=== PATIENT | female | born 1975 | race Hispanic/Latino ===

== ENCOUNTER 2025-07-25 13:07 | Emergency (ER) | payer OTHER ==
[~2025-07-25] VITALS: Ht 157.5 cm; Wt 4.5 kg
--- NOTE | 2025-07-25 13:20 | ERN ---
ED Note History of Present Illness Stated Complaint: RT ARMPIT ABSCESS Chief Complaint: Abscess Time Seen by MD: 13:12 Dictation: PATIENT IS A 49-YEAR-OLD FEMALE HERE WITH A RIGHT AXILLA ABSCESS [place]EN AREA SHE HAS HAD FOR 4-5 DAYS. NO FEVER NO CHILLS NO NAUSEA VOMITING. SHE STATES SHE HAD ONE THERE EARLIER LAST WEEK THAT RUPTURED HOWEVER THIS ONE HAS BEEN PERSISTENT Allergies: Coded Allergies: No Known Drug Allergies (Unverified Allergy, Unknown, 07/25/25) Past Medical History History: Not Applicable RN Note Reviewed/Agreed w/PFSH: Yes Review of System Dictation CONSTITUTIONAL: NEGATIVE EXCEPT FOR HPI HEAD/FACE: NEGATIVE EXCEPT FOR HPI EENT: NEGATIVE EXCEPT FOR HPI RESPIRATORY: NEGATIVE EXCEPT FOR HPI GASTROINTESTINAL/ABDOMINAL: NEGATIVE EXCEPT FOR HPI GENITOURINARY: NEGATIVE EXCEPT FOR HPI MUSCULOSKELETAL: NEGATIVE EXCEPT FOR HPI INTEGUMENTARY: NEGATIVE EXCEPT FOR HPI RIGHT AXILLA ABSCESS NEUROLOGICAL/PSYCH: NEGATIVE EXCEPT FOR HPI HEMATOLOGIC/LYMPHATIC: NEGATIVE EXCEPT FOR HPI ALL SYSTEMS NEGATIVE, EXCEPT NOTED ABOVE. 13 POINT REVIEW OF SYSTEMS ASSESSED AND ALL NEGATIVE EXCEPT FOR ABOVE. Initial Vital Sign VS Vital Signs Date Time Temp Pulse Resp B/P (MAP) Pulse Ox O2 Delivery O2 Flow Rate FiO2 07/25/25 13:14 98.8 114 18 181/99 99 Room Air 0 Physical Exam Dictation VITAL SIGNS REVIEWED GENERAL APPEARANCE: ALERT, ORIENTED X 3, MODERATE ACUTE DISTRESS, WELL DEVELOPED, NOURISHED. HEAD AND FACE: NON-TRAUMATIC. EYES: PERRL, PINK CONJUNCTIVAS, EYELID NO TRAUMA, ANTERIOR CHAMBER WITH ARCUS SENILIS. EARS: PINNAS INTACT AND NO SIGNS OF TRAUMA OR ERYTHEMA EAR CANALS CLEAR AND NO DISCHARGE TM NO ERYTHEMA NOSE: NO DISCHARGE, NO BLEEDING. OROPHARYNX: MOUTH NORMAL, TONGUE PINK, PHARYNX CLEAR,NO ERYTHEMA, TONSILS NO EXUDATES, NO ABSCESSES NOTED, MUCOUS MEMBRANE MOIST NECK: SUPPLE, NON-TENDER, NO THYROMEGALY, NO MASSES, NO JVD, NO BRUITS BREAST:DEFERRED CHEST:NO TENDERNESS, NO CREPITUS, NO PARADOXICAL MOVEMENT, NO RETRACTIONS LUNGS:CLEAR, WELL-VENTILATED, SYMMETRIC, NO RALES, NO WHEEZING, NO RHONCHI, NO STRIDOR, GOOD BREATH SOUNDS BILATERALLY HEART: REGULAR RATE, REGULAR RHYTHM, NO MURMUR, NO GALLOPS VASCULAR: NO PERIPHERAL EDEMA, ABDOMEN: SOFT, POSITIVE BOWEL SOUNDS, NONDISTENDED, NO GUARDING, NONTENDER, NO REBOUND, NO MASSES NO HEPATOMEGALY, NO SPLENOMEGALY, NO EDOUARD'S SIGN, NO HERNIAS. RECTAL: DEFERRED GENITAL: DEFERRED NEUROLOGICAL: NORMAL SPEECH, MOTOR FUNCTION INTACT, SENSORY FUNCTION INTACT MUSCULOSKELETAL: NECK NONTENDER, FULL RANGE OF MOTION, BACK NONTENDER, FULL RANGE OF MOTION, EXTREMITIES: 2 X 2 CM ERYTHEMATOUS LESION TO RIGHT AXILLA FLUCTUANT VERY TENDER TO TOUCH. SKIN: COLOR PINK, DRY, NO TURGOR, NO RASH, NO LACERATIONS, NO ABRASIONS, NO CONTUSIONS. LYMPHATIC: DEFERRED Results (Laboratory/Radiology) Labs Reviewed?: Yes ED Course ED Course Orders Procedure Category Date Status Time Aerobic Culture PAUL 07/25/25 Logged 13:18 Cephalexin 500 Mg PHA 07/25/25 In Process Capsule (Keflex 500 Mg 13:30 Acetaminophen 500mg PHA 07/25/25 Complete Tab (Tylenol 500mg T 13:18 Lidocaine Hcl 1% 20ml PHA 07/25/25 In Process Vial (Lidocaine Hc 13:30 Current Medications Medications (Trade) Dose Ordered Sig/Pawan Route PRN Reason Start Time Stop Time Status Last Admin Dose Admin Acetaminophen (TYLenol 500MG TAB) 1,000 mg ONCE STAT PO 07/25/25 13:18 07/25/25 13:25 DC Cephalexin (Keflex 500 MG CAPS) 1,000 mg ONCE ONCE PO 07/25/25 13:30 07/25/25 13:31 Lidocaine HCl (Lidocaine HCl 1% 20ml Vial) 10 ml ONCE ONCE INJ 07/25/25 13:30 07/25/25 13:31 Vital Signs Date Time Temp Pulse Resp B/P (MAP) Pulse Ox O2 Delivery O2 Flow Rate FiO2 07/25/25 13:14 98.8 114 18 181/99 99 Room Air 0 1330/PATIENT AND HER WERE STRONGLY ADVISED TO CONTINUE ANTIBIOTICS UNTIL GONE. WE WILL GIVE PATIENT 1 G KEFLEX NOW P.O. SHE WAS DISCHARGED TO FOLLOW UP WITH YOUR PRIMARY CARE DOCTOR, TOMORROW FOR FOLLOW UP AND MANAGEMENT. WOUND CARE INSTRUCTIONS GIVEN Medical Decision Making MDM MEDICAL DECISION-MAKING BASED ON EMPIRIC TREATMENT FOR RIGHT AXILLA ABSCESS I AND D WAS PERFORMED AND CULTURE SENT TO LAB KEFLEX 1 G BY MOUTH AND ANALGESIA WAS GIVEN P.O. NO ACTIVE BLEEDING AT THIS TIME. PATIENT REFERRED TO HER PRIMARY CARE DOCTOR TOMORROW Procedure Procedure Dictation: 1325/PROCEDURE EXPLAINED TO PATIENT SHE AGREED TO PROCEED RIGHT AXILLA WAS PREPPED STERILELY WITH BETADINE SWABS 3 ML 1% LIDOCAINE PLAIN FOR LOCAL ANESTHETIC 11. BLADE WAS USED TO MAKE A 2.5 CM INCISION A APPROXIMATELY 5 ML PURULENT DRAINAGE RETURNED AND LOCULATIONS WERE EXPLORED CULTURES WAS SENT TO LAB NO PACKING PATIENT TOLERATED WELL DX & DISP Disposition: Discharge Departure Impression: Primary Impression: Abscess of right axilla Condition: Stable Scripts Ibuprofen (Ibuprofen 800 mg Tab) 800 Mg Tab 800 MG PO Q8H PRN for fever or pain, #30 TAB 0 Refills Prov: NITHIN LORD 07/25/25 Cephalexin (Cephalexin) 500 Mg Tablet 1 TAB PO TID for 10 Days, #30 TAB 0 Refills Prov: NITHIN LORD 07/25/25 Additional Instructions: FOLLOW-UP WITH PRIMARY CARE PROVIDER IN 1 TO 2 DAYS. TAKE MEDICATIONS DIRECTED HERE IN THE EMERGENCY ROOM. OKAY TO CONTINUE HOME MEDICATIONS UNLESS OTHERWISE DISCUSSED DURING YOUR VISIT IN THE EMERGENCY ROOM TODAY. RETURN TO YOUR NEAREST EMERGENCY ROOM IF SYMPTOMS WORSEN OR IF THERE IS NO IMPROVEMENT. CALL 911 IF YOU NEED IMMEDIATE ASSISTANCE. TAKE TYLENOL OR MOTRIN [id number] NEEDED AND IF NO CONTRAINDICATIONS ARE PRESENT. INCREASE ORAL HYDRATION. A WOUND CULTURE OR URINE CULTURE WAS ORDERED HERE IN THE EMERGENCY ROOM DEPARTMENT PLEASE FOLLOW-UP WITH PRIMARY CARE PROVIDER AND ADVISE THEM TO GET REPEAT PORTS FROM OUR FACILITY. IF YOU HAD ANY GENOVEVA WRAP/SPLINTS THAT WERE APPLIED HERE, PLEASE DO NOT REMOVE THEM UNTIL YOU SEE YOUR PRIMARY CARE OR SPECIALTY. OKAY TO WASH WOUND WITH SOAP AND WATER AND RINSE THOROUGHLY. APPLY DRESSING AFTER BATH TAKE ANTIBIOTICS DIRECTED UNTIL GONE. SEE YOUR PRIMARY CARE DOCTOR, TOMORROW FOR MANAGEMENT. Referrals: SELF,REFERRAL (PCP) Time of Disposition: 13:30 I have reviewed the case, and I agree with, Diagnosis and Plan NITHIN LORD Jul 25, 2025 13:20
[2025-07-25] MEDS ORDERED: IBUP-2077 PO (13:31)
[2025-07-25] MEDS ORDERED: CEPH500T PO (13:31)
[2025-07-25] MEDS: LIDOCAINE HCL 1% 20 ML VIAL INJ ONE (13:32)
[2025-07-25 14:12] VITALS: BP 164/78; PULSE 89; RESP 18; TEMP 98.4; O2SAT 0
== END 2025-07-25 14:12 | disposition home or self-care (01) ==
LOC: EDH 13:07
DX: L02.411 Cutaneous abscess of right axilla (principal); Z79.899 Other long term (current) drug therapy
CPT/HCPCS: 99283; 10060; 87070; 87086; 87186; J2003